=== PATIENT | female | born 1990 | race African-American/Black ===

== ENCOUNTER 2024-07-03 08:13 | Outpatient (AMB) | payer OTHER, SELFPAY ==
[2024-07-03 08:34] VITALS: BP 120/72; PULSE 98; O2SAT 99; BMI 37.6
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
== END 2024-07-03 10:10 | disposition home or self-care (01) ==
LOC: HO.HSMS 08:14
PROVIDERS: Visit Provider Nurse Practitioner Family
DX: G44.329 Chronic post-traumatic headache, not intractable (principal); G44.84 Primary exertional headache; H53.141 Visual discomfort, right eye; M54.2 Cervicalgia; R20.0 Anesthesia of skin; R20.2 Paresthesia of skin
CPT/HCPCS: 99204

== ENCOUNTER 2024-07-21 13:42 | Outpatient (REF) | payer OTHER, SELFPAY | END 2024-07-21 13:43 | disposition home or self-care (01) | LOC: HO.MRI 13:42 | PROVIDERS: Visit Provider Nurse Practitioner Family | DX: Z13.89 Encounter for screening for other disorder (principal) ==

== ENCOUNTER 2024-07-23 07:56 | Outpatient (REF) | payer OTHER, SELFPAY ==
--- NOTE | 2024-07-23 07:59 | EMG_ITS ---
FINDINGS: Bilateral median and ulnar motor and sensory studies were performed. Bilateral radial and medial and lateral antecubital brachial sensory studies were performed, and paraspinal muscles were tested with a needle. IMPRESSION: 1. [id number] bilateral median neuropathy across carpal tunnel. 2. Mild left mid cervical chronic radiculopathy. MD ODELL Mcmillan/JOSE LUIS / [id number]
--- OUTSIDE RECORDS SUMMARY | 2024-07-23 07:59 | XMS_ITS | Clinical Summary ---
Author Organization [address] [place] [address] [place] [phone] Phone Care Team Providers Care Cigar Packer And Sorter Name Role Phone Dagoberto Wilson MD Primary Care Provider [phone] Allergies No known active allergies Medications UNABLE TO FIND Elastic Bandages & Supports (CARPAL TUNNEL WRIST STABILIZER) Misc, 2 Each by Does not apply route at bedtime. 1 for each hand to be worn at night. 8 Active levonorgestreL (MIRENA) 21 mcg/24hr (up to 8 yrs) 52 mg IUD 1 Each by Intrauterine route once. Active Active Problems Problem Noted Date Diagnosed Date Back pain 04/22/2014 Neck pain 04/22/2014 Overweight 02/24/2014 Encounters Date Type Department Care Team Description 05/09/2024 1:45 PM EDT Office Visit Bariatric Surgery - [address] [place] [address] Paradise Christie MD Class 2 obesity due to excess calories with body mass index (BMI) of 38.0 to 38.9 in adult, unspecified whether serious comorbidity present (Primary Dx) from Last 3 Months Immunizations Name Administration Dates Next Due DTaP (Infanrix) 6wks to less than 7yo ,12/24/1992,1991,1991,1991 [id number] (Pentacel) 2mo to less than 5yo 10/01/1992,1991,1991,1991 HPV, Quadrivalent 08/12/2013,05/27/2013 Hepatitis B Pediatric (Enger ix B; Recombivax HB) to less than 20 yo 03/26/1992,1991,1991 Influenza trivalent, with preservative (Fluzone; Afluria) 6mo and older 04/22/2016 MMR, measles mumps and rubel la Live (Priorix; M-M-R II) 12mo and older 10/19/1995,10/01/1992 OPV 10/19/1995, 3,1991,1991 PPD Test 04/22/2016 Td Tetanus diptheria (Tdvax) 7yo and older 03/27/2004 Tdap Tetanus diptheria acell ular pertussis (Boostrix; Adacel) 7yo and older 01/07/2013 Surgical History Surgery Date Site/Laterality Comments CHOLECYSTECTOMY PROCEDURE: HISTORICAL CHOLECYSTECTOMY; COMMENT: age 22 Medical History Medical History Date Comments Anemia 04/02/2014 DX:Anemia Family History Medical History Relation Name Comments Asthma Brother 1 Diabetes Father Thyroid disease Father Stroke Maternal Grandmother Depression Mother Coronary artery disease Neg Hx Other cancer Neg Hx Relation Name Status Comments Brother 1 Brother 2 Alive Daughter 1 Alive Daughter 2 Alive Father Alive Maternal Grandmother Mother Alive Social History Tobacco Use Types Packs/Day Years Used Date Smoking Tobacco: Never Smokeless Tobacco: Never Tobacco Cessation:Counseling Given: Not Answered Alcohol Use Standard Drinks/Week Comments Yes 0 (1 standard drink = 0.6 oz pur e alcohol) Comments No Sex and Gender Information Value Date Recorded Sex Assigned at Female 05/21/2024 10:31 AM EDT Legal Sex Female 4:56 PM EST Gender Identity Female 05/21/2024 10:31 AM EDT Sexual Orientation Straight 05/21/2024 10 :31 AM EDT Obstetrics History Last Filed Vital Signs Vital Sign Reading Time Taken Comments Blood Pressure 108/72 05/22/2024 8:42 AM EDT Pulse 92 05/22/2024 8:42 AM EDT Temperature 36.6 ??C (97.8 ??F) 05/09/2024 1:57 PM ED T Respiratory Rate - - Oxygen Saturation - - Inhaled Oxygen Concentration - - Weight 103 kg (228 lb) 05/22/2024 8:42 AM EDT Height 165.1 cm (5' 5 ) 05/22/2024 8:42 AM EDT Body Mass Index 37.94 05/22/2024 8:42 AM EDT Plan of Treatment Upcoming Encounters Date Type Department Care Team (Late st Contact Info) Description 09/10/2024 1:15 PM EDT Office Visit Bariatric Surgery - [facility] [address] [facility] [address] [place] [phone] Paradise Christie MD [address] [facility] [address] [place] [address] Health Maintenance Due Date Last Done Comments Cervical Cancer Screening: Pap Smear 06/28/2012 HPV Vaccines (3 - 3-dose series) 11/26/2013 08/12/2013, 05/27/2013 Cholesterol Screening (Lipid Panel) 01/12/2022 04/22/2014 HIV Screening 01/12/2022 Hepatitis C Screening 01/12/2022 Social Influencers of Health Screening 01/12/2022 DTaP,Tdap,and Td Vaccines (8 - Td or Tdap) 01/07/2023 01/07/2013, 03/27/2004, 10/19/1995, Additional history exists COVID-19 Vaccine ( season) 2023 Influenza Vaccine (Season Ended) 2024 04/22/2016 Depression Screening 05/21/2025 05/21/2024 Hepatitis B Vaccines Completed 03/26/1992, 1991, 1991 HIB Vaccines Completed 10/01/1992, 12/14, 1991, Additional history exists IPV Vaccines Completed 10/19/1995, 12/14, 10/01/1992, Additional history exists MMR Vaccines Completed 10/19/1995, 10/01/1992 Hepatitis A Vaccines Aged Out No long er eligible based on patient's age to complete this topic Meningococcal ACWY Vaccine Aged Out N o longer eligible based on patient's age to complete this topic Meningococcal B Vaccine Aged Out No l onger eligible based on patient's age to complete this topic Pneumococcal Vaccine: Pediatrics (0 to 5 Years) and At-Risk Patients (6 to 64 Years) Aged Out No longer eligible based on patient's age to complete this topic RSV Immunization Patients Under 20 months Aged Out No longer eligible based on patient's age to complete this topic Varicella Vaccines Aged Out No longer eligible based on patient's age to complete this topic Procedures Procedure Name Priority Date/Time Associated Diagnosis Comments LIPID PANEL Routine 04/22/2014 from Last 3 Months or Most Recently Relevant to Health Maintenance Results * (ABNORMAL) Lipid panel (04/22/2014) LDL/HDL Ratio 3 0 - 4 Triglycerides 90 0 - 150 mg/dL Cholesterol 105 0 - 200 mg/dL HDL 38(A) >=40 mg/dL LDL Cholesterol 49 0 - 100 mg/dL Blood Venous blood specimen / Unknown us Historical Provider LAB BLOOD ORDERABLES Maria G l Result from Last 3 Months or Most Recently Relevant to Health Maintenance Insurance [facility] [address] [place] [address] Care Teams Cigar Packer And Sorter Relationship Specialty Start Date End Date Dagoberto Wilson MD [facility] [address] PCP - General Internal Medicine 02/09/24
== END 2024-07-23 07:57 | disposition home or self-care (01) ==
LOC: HO.NEURO 07:56
PROVIDERS: Visit Provider Nurse Practitioner Family
DX: R20.2 Paresthesia of skin (principal); R20.0 Anesthesia of skin; M54.12 Radiculopathy, cervical region; M54.2 Cervicalgia
CPT/HCPCS: 95886; 95913

== ENCOUNTER 2024-10-30 11:15 | Outpatient (AMB) | payer OTHER, SELFPAY ==
[2024-10-30 11:17] VITALS: BP 120/80; PULSE 101; O2SAT 97; BMI 37.4
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
--- OUTSIDE RECORDS SUMMARY | 2024-10-30 14:27 | XMS_ITS | Clinical Summary ---
Author Organization [address] 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 Name Role Phone Dagoberto Wilson MD Primary Care Provider [phone] Allergies No known active allergies Medications UNABLE [...] pain 04/22/2014 Neck pain 04/22/2014 Overweight 02/24/2014 Immunizations Name Administration Dates Next Due DTaP (Infanrix) 6wks to less than 7yo ,12/24/1992,1991,1991,1991 [id number] (Pentacel) 2mo to less than 5yo 10/01/1992,1991,1991,1991 [...] 92 05/22/2024 8:42 AM EDT Temperature 36.6 C (97.8 F) 05/09/2024 1:57 PM EDT Respiratory Rate - - Oxygen Saturation - - Inhaled Oxygen Concentration - - Weight 103 kg (228 lb) 05/22/2024 8:42 AM EDT Height 165.1 cm (5' 5 ) 05/22/2024 8:42 AM EDT Body Mass Index 37.94 05/22/2024 8:42 AM EDT Plan of Treatment Health Maintenance Due Date Last Done Comments Cervical Cancer Screening: Pap Smear 06/28/2012 HPV Vaccines (3 - 3-dose series) 11/26/2013 08/12/2013, 05/27/2013 Cholesterol Screening (Lipid Panel) 01/12/2022 04/22/2014 HIV Screening 01/12/2022 Hepatitis C Screening 01/12/2022 Social Influencers of Health Screening 01/12/2022 DTaP,Tdap,and Td Vaccines (8 - Td or Tdap) 01/07/2023 01/07/2013, 03/27/2004, 10/19/1995, Additional history exists COVID-19 Vaccine () 10/14/2024 Influenza Vaccine (#1) 2024 04/22/2016 Hepatitis B Vaccines Completed 03/26/1992, 1991, 1991 HIB Vaccines Completed 10/01/1992, 12/14, 1991, Additional history exists IPV Vaccines Completed 10/19/1995, 12/14, 10/01/1992, Additional history exists MMR Vaccines Completed 10/19/1995, 10/01/1992 Depression Screening Completed 05/21/2024 Hepatitis A Vaccines Aged Out No long er eligible based on patient's age to complete this topic Meningococcal ACWY Vaccine Aged Out N o longer eligible based on patient's age to complete this topic Meningococcal B Vaccine Aged Out No l onger eligible based on patient's age to complete this topic Pneumococcal Vaccine: Pediatrics (0 to 5 Years) and At-Risk Patients (6 to 49 Years) Aged Out No longer eligible based [...] Most Recently Relevant to Health Maintenance Insurance [facility] [address] [id number] Care 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
== END 2024-10-30 12:03 | disposition home or self-care (01) ==
LOC: HO.HSMS 11:16
PROVIDERS: Visit Provider Nurse Practitioner Family
DX: G44.329 Chronic post-traumatic headache, not intractable (principal); G44.84 Primary exertional headache; H53.141 Visual discomfort, right eye; R51.9 Headache, unspecified; M54.2 Cervicalgia; R20.0 Anesthesia of skin; R20.2 Paresthesia of skin
CPT/HCPCS: 99214